=== PATIENT | male | born 1990 | race Two or more races ===

== ENCOUNTER 2021-10-03 22:46 | Emergency (ER) | payer OTHER ==
[~2021-10-03] VITALS: Ht 182.9 cm; Wt 74.8 kg
[2021-10-04] MEDS ORDERED: PEPCID AC20 MG PO (01:29)
[2021-10-04] MEDS ORDERED: CIPRO500 MG PO (01:29)
== END 2021-10-04 02:36 | disposition home or self-care (01) ==
LOC: ER 22:46
DX: K52.9 Noninfective gastroenteritis and colitis, unspecified (principal)